=== PATIENT | female | born 1970 | race Hispanic/Latino ===

== ENCOUNTER 2019-08-14 12:13 | Emergency (ER) | payer MEDICAID ==
--- NOTE | 2019-08-14 12:38 | Emergency Department Report ---
HPI <NIYA HARPER - Last Filed: 08/14/19 22:14> - HPI HPI: This patient is a female, who appears to be in her 40s or 50s, who presents after exhibiting some psychosis or excited delirium. Allegedly the patient was apparently found running naked down the street saying something about her house blowing up. When EMS was called the patient became very aggressive towards them. She was given Versed, Haldol and Benadryl and presents sedated and therefore a poor historian. We do not currently have her name or identification. <MG MALLORY - Last Filed: 08/15/19 13:13> - General Chief Complaint: Psych Time Seen by Provider: 08/14/19 12:26 ED Review of Systems ROS: Stated complaint: MH Other details as noted in HPI <NIYA HARPER - Last Filed: 08/14/19 22:14> ROS: Stated complaint: MH Other details as noted in HPI Comment: Unobtainable due to pts medical conditions <MG MALLORY - Last Filed: 08/15/19 13:13> Physical Exam - Physical Exam Vital Signs: Vital Signs 08/14/19 08/14/19 08/14/19 12:25 14:30 16:15 Temperature 97.6 F Pulse Rate 98 H 86 80 Respiratory 14 14 Rate Blood Pressure 142/72 130/74 129/80 [Left] O2 Sat by Pulse 95 100 100 Oximetry <NIYA HARPER - Last Filed: 08/14/19 22:14> - Physical Exam Vital Signs: Vital Signs 08/14/19 12:25 Temperature 97.6 F Pulse Rate 98 H Respiratory 14 Rate Blood Pressure 142/72 [Left] O2 Sat by Pulse 95 Oximetry Physical Exam: GENERAL: The patient is well-developed well-nourished. HENT: Normocephalic. Atraumatic. EYES: Pupils equal reactive to light bilaterally. NECK: Supple. Trachea is midline. CHEST/LUNGS: Clear to auscultation. There is no respiratory distress noted. HEART/CARDIOVASCULAR: Regular. There is no tachycardia. ABDOMEN: Abdomen is soft, nontender. Patient has normal bowel sounds. There is no abdominal distention. SKIN: Skin is warm and dry. NEURO: Patient is sleeping/sedated. Withdraws from painful stimuli. Otherwise nonverbal and not following commands. MUSCULOSKELETAL: There is no obvious deformity. There is no evidence of acute injury. <MG MALLORY - Last Filed: 08/15/19 13:13> ED Course Vital Signs 08/14/19 08/14/19 08/14/19 12:25 14:30 16:15 Temperature 97.6 F Pulse Rate 98 H 86 80 Respiratory 14 14 Rate Blood Pressure 142/72 130/74 129/80 [Left] O2 Sat by Pulse 95 100 100 Oximetry - Reevaluation(s) Reevaluation #2: 08/14/19 16:18 Patient has woken up and is screaming in the room. Patient would not tell the psych hi lift operator or nurse her name and seems to be quite altered. Her labs were reviewed by me and she appears to be medically cleared at this time. I did speak with the patient and asked her what her name was after asking her if she was hungry and she did reply yes. States her name is Mona Bundy. We will attempt to verify this information. 08/14/19 16:18 Patient placed on 1013 at this time. Reevaluation #3: 08/14/19 22:14 Patient now screaming in the room and exhibiting aggressive behavior. Patient has been given some Geodon several hours ago for agitation but her behaviors escalated. Patient given Benadryl Ativan and Haldol. <NIYA HARPER - Last Filed: 08/14/19 22:14> Vital Signs 08/14/19 12:25 Temperature 97.6 F Pulse Rate 98 H Respiratory 14 Rate Blood Pressure 142/72 [Left] O2 Sat by Pulse 95 Oximetry - Reevaluation(s) Reevaluation #1: Patient is still sleeping/sedated. She does move her extremities and started to sternal rub but goes right back to sleep. CT head negative for any acute process. Blood alcohol level negative. Waiting for a urine sample for UDS. 08/14/19 14:43 <MG MALLORY - Last Filed: 08/15/19 13:13> ED Medical Decision Making - Lab Data Result diagrams: 08/14/19 12:58 08/14/19 12:58 <NIYA HARPER - Last Filed: 08/14/19 22:14> - Lab Data Result diagrams: 08/14/19 12:58 08/14/19 12:58 - Radiology Data Radiology results: report reviewed CT head/brain wo con INDICATION: Altered mental status. TECHNIQUE: Routine CT head without contrast. All CT scans at this location are performed using CT dose reduction for ALARA by means of automated exposure control. COMPARISON: None. FINDINGS: BRAIN / INTRACRANIAL CONTENTS: No acute hemorrhage, mass effect, midline shift, or hydrocephalus. No appreciable acute large territorial or lacunar infarct. ORBITS: No significant abnormality of visualized orbits. SINUSES / MASTOIDS: No significant abnormality of visualized sinuses and mastoid air cells. ADDITIONAL FINDINGS: None. IMPRESSION: 1. No acute intracranial abnormality. - Medical Decision Making This patient presents to the emergency department for what appears to be a mental health evaluation or altered mental status. The report was excited delirium as the patient was running down the street yelling, and then became very aggressive towards police and/or EMS. She received multiple medications for chemical sedation and presents to the emergency department sleeping and/or sedated. She will stir to sternal rub but otherwise is not following any commands, is nonverbal, and is essentially sleeping. CT of the head does not show any bleed, shift, mass, ischemia, or any other acute process. Patient's labs have been unremarkable thus far. We are waiting for a urine sample for urinalysis and UDS. Vital signs have been stable throughout her ED course thus far. The patient has been made a ED hold and will await a mental health evaluation as soon as she is more awake and alert from the chemical sedation. This patient has been signed out to the incoming ED physician to follow the UDS and continue her monitoring until awake and seen by the mental health hi lift operator. The patient required a few more doses of chemical sedation from the afternoon and overnight physicians. She was seen this morning awake and responsive but still displays some acute psychosis including paranoia. She was seen by the psychiatric team and they will pursue inpatient psychiatric admission. Urine drug screen was positive for benzodiazepines but the patient did receive this as part of her chemical sedation. Very mild urinary tract infection and will be started on Macrobid. The patient is medically cleared for psychiatric placement. - Differential Diagnosis Schizophrenia, bipolar disorder, substance abuse <MG MALLORY - Last Filed: 08/15/19 13:13> Critical care attestation.: If time is entered above; I have spent that time in minutes in the direct care of this critically ill patient, excluding procedure time. <NIYA HARPER - Last Filed: 08/14/19 22:14> Critical Care Time: No Critical care attestation.: If time is entered above; I have spent that time in minutes in the direct care of this critically ill patient, excluding procedure time. <MG MALLORY - Last Filed: 08/15/19 13:13> ED Disposition <NIYA HARPER - Last Filed: 08/14/19 22:14> Is pt being admited?: No <MG MALLORY - Last Filed: 08/15/19 13:13> Clinical Impression: Medical clearance for psychiatric admission, Acute psychosis Disposition: [id number]/[id number] PS[facility] HOSP/PSY UNIT Condition: Stable Referrals: TAYLOR CHRIS MD [Primary Care Provider] - 3-5 Days
[2019-08-14 13:24] LABS: Basophils % (Auto) 0.6 % (0.0-1.8); Eosinophils % (Auto) 0.1 % (0.0-4.3); Hematocrit 35.5 % (30.3-42.9); Hemoglobin 11.9 gm/dl (10.1-14.3); Lymphocytes # (Auto) 1.4 K/mm3 (1.2-5.4); Lymphocytes % (Auto) 22.1 % (13.4-35.0); Mean Corpuscular HGB Conc 34 % (30-34); Mean Corpuscular Volume 84 fl (79-97); Monocytes # (Auto) 0.5 K/mm3 (0.0-0.8); Monocytes % (Auto) 8.3 % (0.0-7.3); Platelet Count 194 K/mm3 (140-440); Red Blood Count 4.23 M/mm3 (3.65-5.03); Red Cell Distribution Width 13.8 % (13.2-15.2)
[2019-08-14 13:46] LABS: BUN/Creatinine Ratio 23; Blood Urea Nitrogen 16 mg/dL (7-17); Calcium 8.5 mg/dL (8.4-10.2); Hemolysis Index 5
[2019-08-14 13:47] LABS: Alanine Aminotransferase 14 units/L (7-56); Albumin 3.9 g/dL (3.9-5); BUN/Creatinine Ratio 24; Blood Urea Nitrogen 17 mg/dL (7-17); Calcium 8.5 mg/dL (8.4-10.2); Hemolysis Index 7
[2019-08-14] MEDS ORDERED: POTASSIUM CHLORIDE ER 20 MEQ TAB PO ONE ×2 (13:55→22:12)
--- NOTE | 2019-08-14 14:03 | Cat Scan Report ---
CT head/brain wo con INDICATION: Altered mental status. TECHNIQUE: Routine CT head without contrast. All CT scans at this location are performed using CT dos e reduction for ALARA by means of automated exposure control. COMPARISON: None. FINDINGS: BRAIN / INTRACRANIAL CONTENTS: No acute hemorrhage, mass effect, midline shift, or hydrocephalus. No appreciable acute large territorial or lacunar infarct. ORBITS: No significant abnormality of visualized orbits. SINUSES / MASTOIDS: No significant abnormality of visualized sinuses and mastoid air cells. ADDITIONAL FINDINGS: None. IMPRESSION: 1. No acute intracranial abnormality. Signer Name: Fritz Guaman MD Signed: 08/14/2019 1:58 PM Workstation Name: [id number]
[2019-08-14] MEDS ORDERED: ZIPRASIDONE MESYLATE 20 MG VIAL IM ONE ×2 (16:39→20:04)
[2019-08-14] MEDS ORDERED: WATER FOR INJ Sterile (PF) 10 ML ONE (20:04)
[2019-08-14] MEDS ORDERED: HALOPERIDOL LACTATE 5 MG/1 ML INJ IM ONE (22:14)
[2019-08-14] MEDS ORDERED: diphenhydrAMINE 50 MG/ML VIAL IM ONE (22:14)
[2019-08-14] MEDS ORDERED: LORazepam 2 MG/ML VIAL IM ONE (22:14)
[2019-08-15] MEDS ORDERED: SODIUM CHLORIDE 0.9% 1000 ML 1,000 ML ONE (07:28)
[2019-08-15 09:35] LABS: Bacteria,Urine 1+ /HPF (Negative); Bilirubin,Urine NEG (Negative); Blood,Urine NEG (Negative); Color,Urine Yellow (Yellow); Hyaline Casts,Urine 1 /LPF; Mucus,Urine 1+ /HPF; Protein,Urine <15 mg/dL mg/dL (Negative); Urobilinogen,Urine < 2.0 mg/dL (<2.0)
[2019-08-15 09:42] LABS: Amphetamine Screen,Urine PRESUMPTIVE NEGATIVE; Cannabinoid Screen,Urine PRESUMPTIVE NEGATIVE; Cocaine Screen,Urine PRESUMPTIVE NEGATIVE; Methadone Screen,Urine PRESUMPTIVE NEGATIVE; Opiate Screen,Urine PRESUMPTIVE NEGATIVE
[2019-08-15 10:12] LABS: Benzodiazepines Screen,Urine PRESUMPTIVE POSITIVE
--- NOTE | 2019-08-15 11:22 | Consultation ---
History of Present Illness - Reason for Consult Consult date: 08/15/19 Reason for consult: Psych eval Requesting physician: NIYA HARPER - Chief Complaint Chief complaint: Paranoid - History of Present Psychiatric Illness The patient is a 49yo single, disabled female with history of Bipolar disorder and Schizophrenia. Per ER documentation, she presented after exhibiting some psychosis or excited delirium; she was apparently found running naked down the street saying something about her house blowing up. When EMS was called the patient became very aggressive towards them. Psychiatry consulted to evaluate patient and recommend disposition. In my interview with the patient she endorses feeling very paranoid, states that people are after her but denies hallucinations/suicidal/homicidal thoughts. Patient is disorganized and does not appear to be able to care for herself. PAST PSYCHIATRIC HISTORY: Diagnoses: Schizophrenia, Bipolar Suicide attempts or Self-harm behavior: yes Prior psychiatric hospitalizations: yes Substance Abuse history:unknown Previous psychiatric medications tried: Unknown Outpatient treatment: no Family Psychiatric History None reported or documented SOCIAL HISTORY Marital Status: Single Living Arrangements: roommates Employment Status: disabled Access to guns/weapons: Patient denies Education: High School History of Abuse: Patient denies Legal History: Patient denies ROS: Constitutional: Negative for weight loss ENT: Negative for stridor Respiratory: Negative for cough or hemoptysis All other systems reviewed and are negative MENTAL STATUS General Appearance and Behavior: age appropriate, good eye contact, cooperative with questioning and polite Cooperation: Cooperative Psychomotor Behavior: within normal limits Mood: depressed Affect and affective range: Congruent with stated mood Thought Process: Fluent/Logical and Goal-directed Thought Content: Paranoid Speech: Normal volume and Regular rate and rhythm Intellectual Functioning Average Suicidal Ideation: Denies SI Homicidal Ideation: Denies HI Impulse Control: intact Insight and Judgment: normal insight and judgment Memory: Normal Attention: Normal Orientation: alert and oriented Diagnosis: Paranoid Schizophrenia RECOMMENDATIONS MEDICATIONS: Risperidone 1mg bid for psychosis Risks, benefits and alternatives of medications discussed with the patient, questions answered and consent obtained from patient. PSYCHOTHERAPY: Supportive psychotherapy provided NUCLEAR MEDICINE SPECIALIST: Yes DISPOSITION: Acute inpatient psychiatric hospitalization when medically stable LEGAL STATUS: 1013 FOLLOW-UP: Will follow The patient agreed on the treatment plan, understood the risk, benefit, alternative treatment, potential consequence of no treatment, and gave informed consent. Please contact with any questions and/or concerns. Mental Status Exam - Vital signs Last Vital Signs Temp 97.4 F L 08/15/19 09:05 Pulse 66 08/15/19 09:05 Resp 18 08/15/19 09:05 BP 136/67 08/15/19 09:05 Pulse Ox 99 08/15/19 02:00 Results Result Diagrams: 08/14/19 12:58 08/14/19 12:58 Abnormal lab results 08/14/19 08/14/19 08/14/19 Range/Units 12:58 12:58 12:58 Rooks % (Auto) 8.3 H (0.0-7.3) % Potassium 3.1 L (3.6-5.0) mmol/L Carbon Dioxide 20 L (22-30) mmol/L Urine WBC (Auto) (0.0-6.0) /HPF Salicylates < 0.3 L (2.8-20.0) mg/dL Acetaminophen (10.0-30.0) ug/mL 08/14/19 08/14/19 08/15/19 Range/Units 12:58 12:58 Unknown Rooks % (Auto) (0.0-7.3) % Potassium 3.1 L (3.6-5.0) mmol/L Carbon Dioxide 19 L (22-30) mmol/L Urine WBC (Auto) 13.0 H (0.0-6.0) /HPF Salicylates (2.8-20.0) mg/dL Acetaminophen < 5.0 L (10.0-30.0) ug/mL All other labs normal.
[2019-08-15] MEDS ORDERED: POTASSIUM CHLORIDE ER 20 MEQ TAB PO ONE (14:03)
[2019-08-15] MEDS: risperiDONE 1 MG TAB PO SCH ×2 (14:23→22:25)
[2019-08-15] MEDS: NITROFURANTOIN MONOHYD/M-CRYST 100 MG CAP PO SCH (14:24)
[2019-08-16] MEDS ORDERED: AMIODARONE 150 MG/3 ML INJ IV ONE (00:41)
[2019-08-16] MEDS: NITROFURANTOIN MONOHYD/M-CRYST 100 MG CAP PO SCH ×2 (01:52→13:51)
[2019-08-16] MEDS: risperiDONE 1 MG TAB PO SCH ×2 (10:00→22:05)
--- NOTE | 2019-08-16 11:53 | Progress Note ---
Subjective - Reason for Consult Consult date: 08/16/19 Reason for consult: Psych follow up - Chief Complaint Chief complaint: No new complaints. SUBJECTIVE Patient is calm and pleasant this morning. She is alert and fully oriented. She denies SI/HI/AVH/Paranoia. She appears to be guarded. She is compliant with her meds and denies side effects. ROS: Constitutional: Negative for weight loss ENT: Negative for stridor Respiratory: Negative for cough or hemoptysis All other systems reviewed and are negative MENTAL STATUS General Appearance and Behavior: age appropriate, good eye contact, cooperative with questioning and polite Cooperation: Cooperative Psychomotor Behavior: within normal limits Mood: good Affect and affective range: Congruent with stated mood Thought Process: Fluent/Logical and Goal-directed Thought Content: wnl Speech: Normal volume and Regular rate and rhythm Intellectual Functioning Average Suicidal Ideation: Denies SI Homicidal Ideation: Denies HI Impulse Control: intact Insight and Judgment: normal insight and judgment Memory: Normal Attention: Normal Orientation: alert and oriented Diagnosis: Paranoid Schizophrenia RECOMMENDATIONS MEDICATIONS: Continue Risperidone 1mg bid for psychosis Risks, benefits and alternatives of medications discussed with the patient, questions answered and consent obtained from patient. PSYCHOTHERAPY: Supportive psychotherapy provided BLACKTOP SPREADER: Yes DISPOSITION: Acute inpatient psychiatric hospitalization when medically stable LEGAL STATUS: 1013 FOLLOW-UP: Will follow The patient agreed on the treatment plan, understood the risk, benefit, alternative treatment, potential consequence of no treatment, and gave informed consent. Please contact with any questions and/or concerns. Mental Status Exam - Vital signs Last Vital Signs Temp 97.8 F 08/16/19 07:00 Pulse 88 08/16/19 07:00 Resp 18 08/16/19 07:00 BP 129/79 08/16/19 07:00 Pulse Ox 96 08/16/19 07:00
[2019-08-17] MEDS: NITROFURANTOIN MONOHYD/M-CRYST 100 MG CAP PO SCH ×2 (05:46→13:33)
[2019-08-17] MEDS: risperiDONE 1 MG TAB PO SCH (09:55)
--- NOTE | 2019-08-17 11:17 | Progress Note ---
Subjective - Reason for Consult Consult date: 08/17/19 Reason for consult: Psych follow up - Chief Complaint Chief complaint: No new complaints. SUBJECTIVE Patient is calm and pleasant this morning. She is alert and fully oriented. She denies SI/HI/AVH/Paranoia. She is compliant with her meds and denies side effects. ROS: Constitutional: Negative for weight loss ENT: Negative for stridor Respiratory: Negative for cough or hemoptysis All other systems reviewed and are negative MENTAL STATUS General Appearance and Behavior: age appropriate, good eye contact, cooperative with questioning and polite Cooperation: Cooperative Psychomotor Behavior: within normal limits Mood: good Affect and affective range: Congruent with stated mood Thought Process: Fluent/Logical and Goal-directed Thought Content: wnl Speech: Normal volume and Regular rate and rhythm Intellectual Functioning Average Suicidal Ideation: Denies SI Homicidal Ideation: Denies HI Impulse Control: intact Insight and Judgment: normal insight and judgment Memory: Normal Attention: Normal Orientation: alert and oriented Diagnosis: Paranoid Schizophrenia RECOMMENDATIONS MEDICATIONS: Continue Risperidone 1mg bid for psychosis Risks, benefits and alternatives of medications discussed with the patient, questions answered and consent obtained from patient. PSYCHOTHERAPY: Supportive psychotherapy provided CLERK TELEVISION PRODUCTION: n/a DISPOSITION: No indication for acute inpatient psychiatric hospitalization at this present time LEGAL STATUS: 1013 rescinded FOLLOW-UP: Will sign off The patient agreed on the treatment plan, understood the risk, benefit, alternative treatment, potential consequence of no treatment, and gave informed consent. Please contact with any questions and/or concerns. Mental Status Exam - Vital signs Last Vital Signs Temp 97.3 F L 08/17/19 08:20 Pulse 71 08/17/19 08:20 Resp 18 08/17/19 08:48 BP 136/94 08/17/19 08:20 Pulse Ox 99 08/17/19 08:20
[2019-08-17 13:50] VITALS: BP 124/84
== END 2019-08-17 16:37 | disposition home or self-care (01) ==
LOC: EDBD 12:13 → ED 12:13
DX: F22 Delusional disorders (principal); F20.0 Paranoid schizophrenia
CPT/HCPCS: 36415; 70450; 80048; 80053; 80307; 81001; 82140; 84132; 84443; 85025; 87086; 96372; 99285; J0282; J1200; J1630; J2060; J3486; J7030; 80320; G0480

== ENCOUNTER 2019-09-28 22:17 | Emergency (ER) | payer MEDICAID ==
--- NOTE | 2019-09-28 22:48 | Event Note ---
Date: 09/28/19 49-year-old female who I saw earlier on today. Apparently, she was walking in the street, and 911 was activated, or emergency medical services were activated. The patient has no complaints at this time. She knows her name, year, and indicates she is not trying to overdose. She denies physical pain at this time. The patient has occasional nonsensical speech, however, when directed to answer questions appropriately, she is able to do so. The patient has chronic psychiatric disease, however, when redirected, I am able to have a lucid conversation with her. She is able to walk with a steady gait. She has a nonfocal motor exam. She can follow-up with an outpatient primary care doctor or psychiatrist Vital Signs 09/28/19 22:24 Temperature 98.3 F Pulse Rate 107 H Respiratory 18 Rate Blood Pressure 136/70 O2 Sat by Pulse 97 Oximetry
[2019-09-29 13:42] VITALS: BP 136/70
== END 2019-09-28 22:48 | disposition left against medical advice (07) ==
LOC: ED 22:17
DX: R73.9 Hyperglycemia, unspecified (principal); Z53.21 Procedure and treatment not carried out due to patient leaving prior to being seen by health care provider
CPT/HCPCS: 82962